=== PATIENT | female | born 1970 | race Caucasian/White ===

== ENCOUNTER → 2023-12-05 | Outpatient (CLI) | payer MEDICAID ==
--- NOTE | 2023-12-10 22:08 | MR ---
EXAMINATION TYPE: MR lumbar spine wo con DATE OF EXAM: 12/05/2023 COMPARISON: None HISTORY: 53-year-old female M54.50 LBP, right side, radiating into right hip and leg. TECHNIQUE: Multiplanar, multisequence images of the lumbar spine were acquired without IV contrast. 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 Vertebral body heights are preserved. Fatty matrix hemangioma within the L4 vertebral body towards the left and smaller within the L2 verte bral body. No suspicious bone marrow replacement. Conus medullaris is normal. Mild degenerative disc disease L2-L3, L3-L4, L4-L5 with a desiccated and bulging discs. The disc bulge impresses on the ventral thecal sac but without significant spinal canal stenosis. Mild facet arthropathy mid to lower lumbar spine. Degenerative trace grade 1 anterolisthesis L3-L4. R emaining alignment is maintained. On the right, no significant neural foraminal stenosis. On the left, changes result in mild neuroforaminal narrowing at L3-L4 and L4-L5. No prevertebral or paravertebral soft tissue pathology seen. IMPRESSION: 1. Mild degenerative disc disease especially L2 through L5 levels with desiccated and bulging discs. Mild facet arthropathy lower lumbar spine. 2. Degenerative trace grade 1 anterolisthesis L3-L4. 3. Mild bulging disks impress on the ventral thecal sac but do not cause any significant spinal canal stenosis. 4. Mild neural foraminal stenosis on the left at L3-L4 and L4-L5. Possible abutment of the exiting le ft L3 nerve root at L3-L4.
== END | disposition home or self-care (01) ==
LOC: RADMRIMAIN 11:23
PROVIDERS: ATTEND Family Medicine
DX: M51.36 Other intervertebral disc degeneration, lumbar region (principal); M47.816 Spondylosis without myelopathy or radiculopathy, lumbar region; M99.73 Connective tissue and disc stenosis of intervertebral foramina of lumbar region
CPT/HCPCS: 72148

== ENCOUNTER 2024-03-12 10:10 | Day surgery (SDC) | payer MEDICAID ==
[~2024-03-12 10:10] MED LIST: ACETAMINOPHEN TAB 500 MG TAB ONE; DEXAMETHASONE SOD PHOSPHATE 4 MG/ML 1 ML VIAL ONE; GABAPENTIN 300 MG CAP ONE; HYDROmorphone 0.5 MG/0.5 ML SYRINGE ONE; LIDOCAINE 1% INJ 10MG/ML (20 ML MDV) ONE; MELOXICAM 7.5 MG TAB ONE; MIDAZOLAM 2 MG/2 ML VIAL ONE; ONDANSETRON 4 MG/2 ML VIAL ONE; PHENYLEPHRINE-0.9% NACL SYG 1,000 MCG/10 ML SYRINGE ONE; PROPOFOL 10 MG/ML 20 ML VIAL IV ONE; ROPIVACAINE 5 MG/ML 30 ML VIAL ONE; SODIUM CHLORIDE 0.9% 1,000 ML BAG ONE; SUCCINYLCHOLINE CHLORIDE 200 MG/10 ML VIAL IV ONE; ceFAZolin 1,000 MG VIAL ONE; fentaNYL (PF) 50 MCG/ML 2 ML AMP ONE
[2024-03-12] MEDS ORDERED: ONDANSETRON 4 MG/2 ML VIAL ONE (11:30)
[2024-03-12] MEDS ORDERED: HYDROcodone/APAP 7.5-325MG 1 EACH TAB ONE (12:39)
--- NOTE | 2024-04-10 08:38 | XR ---
Patient Ameena Baker ID [id number] Order # EXAMINATION TYPE: XR Hip Limited RT DATE OF EXAM: 03/12/2024 COMPARISON: None HISTORY: Right hip replacement TECHNIQUE: AP right hip FINDINGS: There is placement of a right hip prosthesis with acetabular component. No acute fractures or dislocations evident. Postsurgical soft tissue changes are evident. IMPRESSION: 1. No acute fracture post right hip replacement.
--- NOTE | 2024-04-30 18:21 | FL ---
EXAMINATION TYPE: FL guidance operating room, XR Hip Complete RT DATE OF EXAM: 04/05/2024 1:23 PM COMPARISON: Pre Operative Images if available both CT/MRI or plain film CLINICAL INDICATION: Female, 53 years old with history of RIGHT TOTAL ANT HIP; TECHNIQUE: FL guidance operating room, XR Hip Complete RT, multiple fluoroscopic images provided for procedure. Total fluoroscopy time: 44 seconds Total submitted images to PACS: 3 DAP: [id number] mGym2 Gycm2 uGym2 cGycm2 or equivalent. FINDINGS: Fluoroscopic images during internal fixation/arthroplasty demonstrate fixation hardware in appropriat e position. Hardware appears intact. No immediate complication identified. IMPRESSION: 1. No evidence for intraoperative complication. 2. Please see the operative/procedural note for further details. [facility], , 04/30/2024 6:18 PM
== END 2024-03-12 14:05 ==
LOC: OR 10:10
PROVIDERS: ATTEND Orthopaedic Surgery
DX: M16.11 Unilateral primary osteoarthritis, right hip
CPT/HCPCS: 64447; 73501; 73502